=== PATIENT | female | born 1990 | race Caucasian/White ===

== ENCOUNTER 2017-10-07 23:20 | Emergency (ER) | payer MEDICAID, SELFPAY ==
[2017-10-07 23:21] VITALS: BP 208/111; PULSE 103; RESP 16; TEMP 36.4; O2SAT 98; BMI 49.4
--- NOTE | 2017-10-07 23:28 | RAD_ITS ---
XR Tibia/Fibula 2 Views INDICATION: fell and hit ankle on shower door, pain and redness on anterior side of ankle COMPARISON: None TECHNIQUE: Frontal and lateral views of the left tibia and fibula FINDINGS: The left tibia and fibula are intact and there is normal alignment at the left knee and ankle. No evidence of radiopaque foreign body. RAD/Tibia & Fibula 2 Views IMPRESSION: Unremarkable plain film examination of the left tibia and fibula at 0003 Reported and signed by: Margarita Mendez MD Electronically Signed: Margarita Mendez MD at 23:02 EST Tel , Service support ,
--- NOTE | 2017-10-07 23:35 | ED.VISSUMM ---
- ER Visit Summary Date of Service: 10/07/17 Chief Complaint: Left lower extremity pain History of Present Illness: The patient is a 27 F presenting with left lower extremity pain. 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 She hit her left lower extremity against the bar of the shower door. She complains of persistent pain in her left lower extremity. She has been able to ambulate with pain. She tried no medications prior to arrival. No other injuries. Physical Examination: Vitals are stable. Patient is afebrile. Alert no acute distress. HEENT exam is unremarkable. Lungs are clear and equal bilaterally. Heart is regular rate and rhythm. Extremities left anterior mid lower leg tenderness with ecchymosis. No ankle tenderness, no knee tenderness. Normal distal pulses. Skin is warm and dry. No focal neurologic deficit. Remainder of exam is unremarkable. Emergency Department Course and Treatment: X-ray of the left tib-fib shows no acute process. She declined medication. On arrival, BP was 208/111. This improved to 169/110 without medication. She is advised importance of close follow-up for blood pressure recheck. Patient understands and will follow up with her primary care physician. Advised to ice and elevate. Advised to follow up with primary care physician. Advised to return to the ED for worsening complaints. Disposition: Discharge home Impression: LLE contusion This note was generated with [employer] dictation software. It may contain incorrect words, spelling, and punctuation that were not noted in review of the chart prior to signing ED Disposition - Plan for ED Patient: Disposition: Home or Assisted Living Chief Complaint: Lower Extremity Injury Instructions: ED Contusion Lower Ext Referrals: Adrianna Pastor MD [Primary Care Provider] -
--- NOTE | 2017-10-08 | ED.DEP ---
ED Disposition - Plan for ED Patient: Chief Complaint: Lower Extremity Injury Instructions: ED Contusion Lower Ext Referrals: Adrianna Pastor MD [Primary Care Provider] -
== END 2017-10-08 00:12 | disposition home or self-care (01) ==
PROVIDERS: Emergency Provider Emergency Medicine; Family Provider Family Medicine; PCP Family Medicine
DX: S80.12XA Contusion of left lower leg, initial encounter (principal); W22.8XXA Striking against or struck by other objects, initial encounter; Y93.F1 Activity, caregiving, bathing; Y92.008 Other place in unspecified non-institutional (private) residence as the place of occurrence of the external cause; Y99.8 Other external cause status
CPT/HCPCS: 73590; 99282

== ENCOUNTER 2018-08-20 00:02 | Emergency (ER) | payer MEDICAID, SELFPAY ==
[2018-08-20 00:03] VITALS: BP 163/98; PULSE 109; RESP 14; TEMP 36.4; O2SAT 99; BMI 55.6
--- NOTE | 2018-08-20 00:27 | ED.VISSUMM ---
- ER Visit Summary Date of Service: 08/20/18 Chief Complaint: [Dental pain] History of Present Illness: The patient is a 28 F [presents the emergency department with dental pain and facial swelling. Patient noticed some swelling today. She has some mild discomfort of the right upper teeth when she tries to bite into food. Patient states that she has history of poor dentition but because of her work schedule is not been able to follow-up with the dentist. Patient denies any fevers.] Physical Examination: [HEENT-PERRLA, EOMI. Cranial nerves II through XII grossly intact. TMs clear. Mucous membranes moist. No adenopathy. Dentition-patient does have some gingival erythema and local swelling right upper lung area of premolars. Patient has some mild tenderness palpation over the premolars. There is no fluctuance noted. No facial erythema or cellulitis. Cardiovascular-regular rate and rhythm without murmur or ectopy Lungs-clear to auscultation, chest wall stable without crepitus or subcu emphysema Abdomen-normoactive bowel sounds, soft, nontender, no rebound or rigidity, no peritoneal signs. Extremities-intact ?4, normal range of motion, normal pulses, atraumatic] Test Results: [None indicated] Emergency Department Course and Treatment: [Patient was given 1 dose of clindamycin in the emergency department and she did not want anything for pain. At this point I feel she has the start of an early abscess however I do not feel that this is amenable to any type of incision and drainage at this time.] Treatment Plan: [Patient will be treated with clindamycin and will be referred to a dentist] Disposition: [Discharged home in stable condition] Impression: [Dental abscess] This note was generated with [employer] dictation software. It may contain incorrect words, spelling, and punctuation that were not noted in review of the chart prior to signing ED Disposition - Plan for ED Patient: Chief Complaint: Dental Referrals: Adrianna Pastor MD [Primary Care Provider] -
--- NOTE | 2018-08-20 00:30 | ED.DCSUM_ITS ---
- ER Visit Summary Date of Service: 08/20/18 Chief Complaint: [Dental pain] History of Present Illness: The patient is a 28 F [presents the emergency department with dental pain and facial swelling. Patient noticed some swelling today. She has some mild discomfort of the right upper teeth when she tries to bite into food. Patient states that she has history of poor dentition but because of her work schedule is not been able to follow-up with the dentist. Patient denies any fevers.] Physical Examination: [HEENT-PERRLA, EOMI. Cranial nerves II through XII grossly intact. TMs clear. Mucous membranes moist. No adenopathy. Dentition- patient does have some gingival erythema and local swelling right upper lung area of premolars. Patient has some mild tenderness palpation over the premolars. There is no fluctuance noted. No facial erythema or cellulitis. Cardiovascular-regular rate and rhythm without murmur or ectopy Lungs-clear to auscultation, chest wall stable without crepitus or subcu emphysema Abdomen-normoactive bowel sounds, soft, nontender, no rebound or rigidity, no peritoneal signs. Extremities-intact ?4, normal range of motion, normal pulses, atraumatic] Test Results: [None indicated] Emergency Department Course and Treatment: [Patient was given 1 dose of clindamycin in the emergency department and she did not want anything for pain. At this point I feel she has the start of an early abscess however I do not feel that this is amenable to any type of incision and drainage at this time.] Treatment Plan: [Patient will be treated with clindamycin and will be referred to a dentist] Disposition: [Discharged home in stable condition] Impression: [Dental abscess] This note was generated with [employer] dictation software. It may contain incorrect words, spelling, and punctuation that were not noted in review of the chart prior to signing ED Disposition - Plan for ED Patient: Chief Complaint: Dental Referrals: Adrianna Pastor MD [Primary Care Provider] -
--- NOTE | 2018-08-20 00:30 | ED.DEP ---
ED Disposition - Plan for ED Patient: Chief Complaint: Dental Instructions: ED Abscess Dental Prescriptions: Clindamycin HCl [Cleocin] 300 mg PO Q6H #40 cap Referrals: Adrianna Pastor MD [Primary Care Provider] - Additional Instructions: see a dentist
[2018-08-20] MEDS: Clindamycin HCl 150 MG Capsule 300 MG PO (00:44)
[2018-08-20 00:46] VITALS: BP 163/98; PULSE 109; RESP 14; O2SAT 99
--- OUTSIDE RECORDS SUMMARY | 2018-10-22 12:54 | XMS RPT_ITS ---
:1990 Author Organization [facility] Care Team Providers Name Role Phone Adrianna Pastor Primary Care Unavailable Santa Cantor Attending Unavailable Adrianna Pastor Primary Care Unavailable Briana Phillips Attending Unavailable PROBLEMS PROBLEMS No Problem Records FoundPROCEDURES PROCEDURES No Procedure Records FoundRESULTS RESULTS DISCHARGE INSTRUCTION Observed: 08/20/2018 Status: F Source: [place] 12:31 AM [facility] Medical Records Department [address] [facility] [place] [address] Discharge Instruction 08/20/180 MR#: [id number] Acct: [id number] Name: REANNA MOELLER Rep #: [id number] : 1990 28 From: Santa Cantor DO PCP: Adrianna Pastor MD Status: PRE ER ED Disposition - Plan for ED Patient: Chief Complaint: Dental Instructions: ED Abscess Dental Prescriptions: Clindamycin HCl [Cleocin] 300 mg PO Q6H #40 cap Referrals: Adrianna Pastor MD [Primary Care Provider] - Additional Instructions: see a dentist What to do if you have Problems For any increased pain, shortness of breath, bleeding, nausea or vomiting, chest pain, or any unexpected problems, contact your Primary Care Provider. Call [facility] ([phone]) or report to the closest Emergency Room. Call 911 if necessary. 08/20/1830 <Electronically signed by Santa Cantor DO> Date Santa Cantor DO Cosigner Signature (If Indicated): Date CC: Adrianna Pastor MD EMERGENCY DEPARTMENT Observed: 08/20/2018 Status: F Source: [place] SUMMARY 12:30 AM [facility] Medical Records Department [address] [place] [address] Emergency Department Summary 08/20/18 0027 MR#: [id number] Acct: [id number] Name: REANNA MOELLER Rep #: [id number] : 1990 28 From: Santa Cantor DO PCP: Adrianna Pastor MD Status: PRE ER - ER Visit Summary Date of Service: 08/20/18 Chief Complaint: [Dental pain] History of Present Illness: The patient is a 28 F [presents the emergency department with dental pain and facial swelling. Patient noticed some swelling today. She has some mild discomfort of the right upper teeth when she tries to bite into food. Patient states that she has history of poor dentition but because of her work schedule is not been able to follow-up with the dentist. Patient denies any fevers.] Physical Examination: [HEENT-PERRLA, EOMI. Cranial nerves II through XII grossly intact. TMs clear. Mucous membranes moist. No adenopathy. Dentition- patient does have some gingival erythema and local swelling right upper lung area of premolars. Patient has some mild tenderness palpation over the premolars. There is no fluctuance noted. No facial erythema or cellulitis. Cardiovascular-regular rate and rhythm without murmur or ectopy Lungs-clear to auscultation, chest wall stable without crepitus or subcu emphysema Abdomen-normoactive bowel sounds, soft, nontender, no rebound or rigidity, no peritoneal signs. Extremities-intact 4, normal range of motion, normal pulses, atraumatic] Test Results: [None indicated] Emergency Department Course and Treatment: [Patient was given 1 dose of clindamycin in the emergency department and she did not want anything for pain. At this point I feel she has the start of an early abscess however I do not feel that this is amenable to any type of incision and drainage at this time.] Treatment Plan: [Patient will be treated with clindamycin and will be referred to a dentist] Disposition: [Discharged home in stable condition] Impression: [Dental abscess] This note was generated with [employer] dictation software. It may contain incorrect words, spelling, and punctuation that were not noted in review of the chart prior to signing ED Disposition - Plan for ED Patient: Chief Complaint: Dental Referrals: Adrianna Pastor MD [Primary Care Provider] - What to do if you have Problems For any increased pain, shortness of breath, bleeding, nausea or vomiting, chest pain, or any unexpected problems, contact your Primary Care Provider. Call [facility] ([phone]) or report to the closest Emergency Room. Call 911 if necessary. 08/20/18 0030 <Electronically signed by Santa Cantor DO> Date Santa Cantor DO Cosigner Signature (If Indicated): Date CC: Adrianna Pastor MD EMERGENCY DEPARTMENT Observed: 10/08/2017 Status: F Source: [place] SUMMARY 12:19 AM [facility] Medical Records Department [address] [place] [address] Emergency Department Summary 10/07/17 2335 MR#: [id number] Acct: [id number] Name: REANNA MOELLER Rep #: [id number] : 1990 27 From: Briana Phillips MD PCP: Adrianna Pastor MD Status: DEP ER - ER Visit Summary Date of Service: 10/07/17 Chief Complaint: Left lower extremity pain History of Present Illness: The patient is a 27 F presenting with left lower extremity pain. 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 She hit her left lower extremity against the bar of the shower door. She complains of persistent pain in her left lower extremity. She has been able to ambulate with pain. She tried no medications prior to arrival. No other injuries. Physical Examination: Vitals are stable. Patient is afebrile. Alert no acute distress. HEENT exam is unremarkable. Lungs are clear and equal bilaterally. Heart is regular rate and rhythm. Extremities left anterior mid lower leg tenderness with ecchymosis. No ankle tenderness, no knee tenderness. Normal distal pulses. Skin is warm and dry. No focal neurologic deficit. Remainder of exam is unremarkable. Emergency Department Course and Treatment: X-ray of the left tib-fib shows no acute process. She declined medication. On arrival, BP was 208/111. This improved to 169/110 without medication. She is advised importance of close follow-up for blood pressure recheck. Patient understands and will follow up with her primary care physician. Advised to ice and elevate. Advised to follow up with primary care physician. Advised to return to the ED for worsening complaints. Disposition: Discharge home Impression: LLE contusion This note was generated with [employer] dictation software. It may contain incorrect words, spelling, and punctuation that were not noted in review of the chart prior to signing ED Disposition - Plan for ED Patient: Disposition: Home or Assisted Living Chief Complaint: Lower Extremity Injury Instructions: ED Contusion Lower Ext Referrals: Adrianna Pastor MD [Primary Care Provider] - What to do if you have Problems For any increased pain, shortness of breath, bleeding, nausea or vomiting, chest pain, or any unexpected problems, contact your Primary Care Provider. Call [facility] ([phone]) or report to the closest Emergency Room. Call 911 if necessary. 10/08/17 0018 <Electronically signed by Briana Phillips MD> Date Briana Phillips MD Cosigner Signature (If Indicated): Date CC: Adrianna Pastor MD DISCHARGE INSTRUCTION Observed: 10/08/2017 Status: F Source: [place] 12:00 AM [facility] Medical Records Department [address] [place] [address] Discharge Instruction 10/08/17 0000 MR#: [id number] Acct: [id number] Name: REANNA MOELLER Rep #: [id number] : 1990 27 From: Briana Phillips MD PCP: Adrianna Pastor MD Status: REG ER ED Disposition - Plan for ED Patient: Chief Complaint: Lower Extremity Injury Instructions: ED Contusion Lower Ext Referrals: Adrianna Pastor MD [Primary Care Provider] - What to do if you have Problems For any increased pain, shortness of breath, bleeding, nausea or vomiting, chest pain, or any unexpected problems, contact your Primary Care Provider. Call [facility] ([phone]) or report to the closest Emergency Room. Call 911 if necessary. 10/08/17 0000 <Electronically signed by Briana Phillips MD> Date Briana Phillips MD Cosigner Signature (If Indicated): Date CC: Adrianna Pastor MD TIBIA AND FIBULA Observed: 10/07/2017 Status: F Source: [place] 2 VIEWS 11:28 PM [facility] Imaging Services [address] [place] [address] Tibia AND Fibula 2 Views MR#: [id number] Acct: [id number] Name: REANNA MOELLER Rep #: [id number] : 1990 F 27 From: Margarita Mendez MD PCP: Adrianna Pastor MD Status: REG ER Study: Tibia AND Fibula 2 Views Date of Exam: 10/07/17 Exam# [id number] Ordering Dr: Briana Phillips MD XR Tibia/Fibula 2 Views INDICATION: fell and hit ankle on shower door, pain and redness on anterior side of ankle COMPARISON: None TECHNIQUE: Frontal and lateral views of the left tibia and fibula FINDINGS: The left tibia and fibula are intact and there is normal alignment at the left knee and ankle. No evidence of radiopaque foreign body. RAD/Tibia AND Fibula 2 Views IMPRESSION: Unremarkable plain film examination of the left tibia and fibula at 0003 Reported and signed by: Margarita Mendez MD Electronically Signed: Margarita Mendez MD at 23:02 EST Tel , Service support , CC: Briana Phillips MD; Adrianna Pastor MD Corporate Quality Engineer: Signed ALLERGIES ALLERGIES DATE TYPE / CODE NAME / CODE REACTION SEVERITY SOURCE 10/07/2017 Drug No Known Unknown [facility] Allergy/4160 Allergies/F00 Hospital 37286(SNOMED [id number](RXNOR Repository CT) M) ENCOUNTERS ENCOUNTERS ADMIT/DISCHARGE ACCOUNT ADMITTING ENCOUNTER LOCATION SOURCE NUMBER CLASS 08/20/2018/ [id number] [facility] [place] [facility] ing:ED Repository 10/07/2017/ [id number] Emergency [place] [facility] ing:ED Repository PAYERS PAYERS ENCOUNTER GUARANTOR PAYER SUBSCRIBER SOURCE 08/20/2018 REANNA CRAVEN Primary REANNA B[place] [id number] Insurance:CARESOURCEP GOODTERRANCEDOB: [facility] [place], [place]: [id number] [id number] Repository [address]Peq: ([phone]) Date:2018-08-20 O [phone] () [address]ATTN: [place] [address]JL: 08/20/2018 Secondary NOT GIVENUNK [place] Insurance:SELF PAY [facility] Number: Effective Repository Date:2018-08-20 10/07/2017 Mary B Primary REANNA B[place] [id number] Insurance:CARESOURCEP SUNNIDOB: [facility] [place]: [id number] [id number] Repository [address]Vxe: [phone]) Date:2017-10-07P O (HP) [address]ATTN: [place] [address]HN: 10/07/2017 Secondary NOT GIVENUNK [place] Insurance:SELF PAY [facility] Number: Effective Repository Date:2017-10-07
== END 2018-08-20 00:46 | disposition home or self-care (01) ==
LOC: ED 00:40
PROVIDERS: Emergency Provider Emergency Medicine; Family Provider Family Medicine; PCP Family Medicine
DX: K04.7 Periapical abscess without sinus (principal)
CPT/HCPCS: 99283

== ENCOUNTER 2018-12-10 06:07 | Emergency (ER) | payer MEDICAID, SELFPAY ==
[2018-12-10 06:08] VITALS: BP 181/105; PULSE 95; RESP 16; TEMP 36.6; O2SAT 99; BMI 54.1
--- NOTE | 2018-12-10 06:31 | ED.DCSUM_ITS ---
- ER Visit Summary Date of Service: 12/10/18 Chief Complaint: Right ear pain History of Present Illness: The patient is a 28 F who presents with right ear pain. It woke her from sleep about 2 hours ago. She does complain of some nasal congestion. No fevers. No nausea or vomiting. Physical Examination: Afebrile vitals notable for blood pressure 181/105 Patient appears uncomfortable Right tympanic membrane erythema, bulging, purulent effusion external auditory canal normal Heart regular rate No respiratory distress Alert Test Results: Not indicated Emergency Department Course and Treatment: Patient's examination is consistent with acute right otitis media. She was given first dose of amoxicillin here as well as a prescription for the same. Treatment Plan: [] Disposition: Discharge Impression: Acute right otitis media This note was generated with [facility] dictation software. It may contain incorrect words, spelling, and punctuation that were not noted in review of the chart prior to signing ED Disposition - Plan for ED Patient: Referrals: Adrianna Pastor MD [Primary Care Provider] -
--- NOTE | 2018-12-10 06:32 | ED.DEP ---
ED Disposition - Plan for ED Patient: Instructions: ED Otitis Media Acute Adult Prescriptions: Amoxicillin 1,000 mg PO BID #40 tab Referrals: Adrianna Pastor MD [Primary Care Provider] -
[2018-12-10] MEDS: AMOXICILLIN 500 MG CAPSULE 1000 MG PO (06:44)
[2018-12-10 06:47] VITALS: PULSE 78; RESP 16; O2SAT 100
== END 2018-12-10 06:48 | disposition home or self-care (01) ==
PROVIDERS: Emergency Provider Emergency Medicine; Family Provider Family Medicine; PCP Family Medicine
DX: H66.91 Otitis media, unspecified, right ear (principal)
CPT/HCPCS: 99283

== ENCOUNTER 2020-03-26 22:58 | Emergency (ER) | payer MEDICAID, SELFPAY ==
[2020-03-26 22:59] VITALS: BP 153/74; PULSE 118; RESP 18; TEMP 36.2; O2SAT 100; BMI 52.2
--- NOTE | 2020-03-26 23:10 | ED.VIS.GEN ---
History of Present Illness Chief Complaint: Other, Pain/Inj Informant: Patient Onset: Today Narrative: Blister left outer lip noted today. Painful. No drainage. States some soreness in the upper palate also. No trouble swallowing. No fevers. No history of similar. States had some ear discomfort in the right side yesterday called her PCP put on doxycycline due to history of ear infections. With no hearing loss. 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 Denies any allergies. Prior similar symptoms: No Past Medical History - Allergies and Home Meds Allergies/Adverse Reactions: Allergies No Known Allergies Allergy (Verified 03/26/20 23:02) Primary Care Physician: Adrianna Pastor MD [Primary Care Provider] - Past Medical History: None Smoking Status: Never smoker Review of Systems General: Denies: Chills, Fever, Sweats Eyes: Denies: Visual changes - bilaterally, Diplopia ENT: Denies: Rhinorrhea, Sore throat Cardiovascular: Denies: Chest pain, Palpitations Respiratory: Denies: Dyspnea, Cough, Dyspnea on exertion Gastrointestinal: Denies: Abdominal pain, Nausea, Vomiting, Diarrhea, Melena, Hematochezia Genitourinary: Denies: Dysuria, Hematuria, Frequency Musculoskeletal: Denies: Back pain, Extremity Pain Skin: Reports: - - Blister left lip. Denies: Rash, Wounds Neurological: Denies: Headache, Weakness, Numbness Physical Exam Vital Signs/Narrative: Vital Signs Temp Pulse Resp BP Pulse Ox 03/26/20 22:59 97.1 F L 118 H 18 153/74 H 100 Inital Vital Signs reviewed: Yes General: Well nourished, Well developed, No Acute Distress Head: Normocephalic, Atraumatic Eyes: Perrl, EOMI ENT: Moist mucous membranes, No rhinorrhea, - - 2 small vesicles left upper outer lip along the vermilion, no drainage. No visualized blisters in the mouth, no papules. No posterior pharyngeal erythema, airway patent. No trismus. Neck: Supple, Nontender Cardiovascular: Regular rate, Regular rhythm, No murmurs, - - Heart rate 102 Respiratory: No distress, CTA bilaterally, Chest nontender Abdomen: Soft, Nontender, Nondistended, Normal bowel sounds Back: Nontender, Normal Inspection Extremities: Nontender, No edema Skin: Normal color, No rash, - - No rashes noted on the hands or feet. Neurological: Alert, Oriented x3, Cranial nerves II-XII grossly intact, Normal Strength, Normal Sensation Psychological: Normal affect, Normal Mood Diagnostic/Tx/Re-eval - Medical Decision Making Patient nontoxic. Discussed viral cold sore. She denies any increased stressors. First occurrence. Will place on valacyclovir twice a day for 10 days. She will use Tylenol Motrin as needed should continue oral hydration. She will follow-up with her PCP. All questions were answered. ED Disposition - Plan for ED Patient: Disposition: Home or Assisted Living Diagnosis: Cold sore Instructions: Cold Sore Prescriptions: Valacyclovir HCl [Valacyclovir] 1,000 mg PO BID #20 tab Transmission Status: Pending to [facility] Referrals: Adrianna Pastor MD [Primary Care Provider] - 5-7 Days
[2020-03-26 23:23] VITALS: RESP 16
== END 2020-03-26 23:24 | disposition home or self-care (01) ==
LOC: ED 23:18
PROVIDERS: Emergency Provider Emergency Medicine; PCP Family Medicine
DX: B00.1 Herpesviral vesicular dermatitis (principal); Z79.2 Long term (current) use of antibiotics
CPT/HCPCS: 99282